=== PATIENT | female | born 1960 | race Caucasian/White ===

== ENCOUNTER 2020-11-29 11:28 | Outpatient (CLI) | payer BC, SELFPAY ==
--- NOTE | ~2020-11-29 | CT_ITS ---
EXAMINATION: CT abdomen pelvis wo con EXAM DATE: 11/29/2020 11:49 INDICATION: Right ureteral stone. Hematuria. TECHNIQUE: Spiral CT of the abdomen and pelvis was performed without contrast. Axial, coronal and sag ittal images were reviewed. The dose-length product (DLP) for this examination was 585.26 mGy-cm. T he exposure was tailored according to patient size (auto mA exposure control), and iterative reconstr uction (ASIR) was used as additional dose reduction technique. There is no prior study for compariso n. FINDINGS: There is a 3 mm right inferior calyceal stone. There is no ureteral stone or hydronephrosis . The uterus is not identified and has likely been surgically resected. The bladder is unremarkable . The liver, spleen, adrenal glands and pancreas are unremarkable. There are cholecystectomy clips. There is no retroperitoneal or pelvic lymphadenopathy. The appendix is not positively visualized. There is no pericecal inflammatory change to suggest appe ndicitis. There is moderate scattered colonic diverticulosis. There is no adjacent inflammatory marrufo ge to suggest diverticulitis. The stomach and small bowel are unremarkable. There is expected amount of colonic stool. No free intraperitoneal gas. Trace pericardial effusion. Heart normal in size. The lung bases are unremarkable. There are no osteoblastic or osteolytic lesions identified. IMPRESSION: 1. Right inferior calyceal 3 mm stone. No ureteral stones or obstructive nephropathy. 2. Colonic diverticulosis. Reviewed, dictated and finalized at location A. HOLDER IMPRESSION: 1. Right inferior calyceal 3 mm stone. No ureteral stones or obstructive nephr opathy. 2. Colonic diverticulosis.
--- NOTE | ~2020-11-29 | XR_ITS ---
EXAMINATION: XR abdomen/kub 1V EXAM DATE: 11/29/2020 11:53 INDICATION: Right inferior calyceal stone. TECHNIQUE: Frontal projection(s) of the abdomen for interpretation. Correlation is made to CT abdomen same date. FINDINGS: Bowel gas overlying the renal contours, cannot confidently identify the 3 mm right inferio r calyceal stone. Nonobstructive bowel gas pattern. There are cholecystectomy clips. IMPRESSION: Right inferior calyceal stone not confidently visualized. Reviewed, dictated and finalized at location A. STHESIOLOGIST
== END 2020-11-29 11:29 | disposition home or self-care (01) ==
PROVIDERS: PCP Internal Medicine; Visit Provider Urology
DX: N20.1 Calculus of ureter (principal); K57.30 Diverticulosis of large intestine without perforation or abscess without bleeding
CPT/HCPCS: 74018; 74176

== ENCOUNTER 2021-01-10 10:17 | Outpatient (CLI) | payer BC, SELFPAY ==
--- NOTE | ~2021-01-10 | CT_ITS ---
EXAMINATION: CT abdomen pelvis wo con DATE: 01/10/2021 10:41 INDICATION: Hematuria, history of ureteral stone TECHNIQUE: Computed tomography (CT) of the abdomen and pelvis was performed without intravenous contr ast. The dose-length product (DLP) was 504.25 mGy-cm. Automated exposure control and iterative recons truction technique were employed. COMPARISON: 11/29/2020 FINDINGS: Minimal dependent atelectasis is present in the lung bases. The heart size is normal. There is a small pericardial effusion. A small sliding hiatal hernia is noted. A 1.4 cm hypoattenuating le dale of the left hepatic lobe likely reflects a cyst or hemangioma in the absence of known malignancy . The gallbladder is surgically absent. The spleen, pancreas, and adrenal glands are normal. The prev iously described 3 mm right kidney stone is now seen in the right distal ureter (image 128). The left kidney is unremarkable. No pathologically enlarged abdominal or pelvic lymph nodes are identified. T here is no free intraperitoneal gas or evidence of bowel obstruction. Colonic diverticulosis is prese nt without evidence of diverticulitis. A fat-containing umbilical hernia is noted. IMPRESSION: 1. Migration of the previously described right kidney stone into the distal right ureter. Reviewed, dictated and finalized at location B. IMPRESSION: 1. Migration of the previously described right kidney stone into the distal rig ht ureter.
--- NOTE | ~2021-01-10 | XR_ITS ---
EXAMINATION: XR abdomen/kub 1V INDICATION: Right ureteral stone TECHNIQUE: Supine views of the abdomen were obtained on 2 radiographs. COMPARISON: 11/29/2020 FINDINGS: There is a 4 mm stone projecting over the right sacrum which appears to project between S1 and S2. A phlebolith is noted in the right pelvis. There are cholecystectomy clips in the right upper quadrant. The bowel gas pattern is normal. The lung bases are clear. IMPRESSION: 1. 4 mm right distal ureteral stone. Reviewed, dictated and finalized at location B.
== END 2021-01-10 10:18 | disposition home or self-care (01) ==
PROVIDERS: PCP Internal Medicine; Visit Provider Urology
DX: N20.1 Calculus of ureter (principal)
CPT/HCPCS: 74018; 74176

== ENCOUNTER 2021-01-24 08:46 | Outpatient (CLI) | payer BC, SELFPAY ==
--- NOTE | ~2021-01-24 | XR_ITS ---
EXAMINATION: XR abdomen/kub 1V EXAM DATE: 01/24/2021 08:58 INDICATION: Right ureteral stone. TECHNIQUE: Frontal projection of the upper abdomen, frontal projection lower abdomen/pelvis for inter pretation. Comparison is made to prior examination from 01/10/2021. FINDINGS: There is a right-sided pelvic round calcification unchanged, a phlebolith. Previous exam arroyo d indicated small density over the right sacral ala. Stool overlies the ureterovesicular junctions. N o other calcifications identified. There are cholecystectomy clips. There are mild bony degenerative changes. IMPRESSION: Possible reidentification of right mid ureteral stone. Reviewed, dictated and finalized at location A.
== END 2021-01-24 08:47 | disposition home or self-care (01) ==
PROVIDERS: PCP Internal Medicine; Visit Provider Urology
DX: N20.1 Calculus of ureter (principal)
CPT/HCPCS: 74018

== ENCOUNTER 2021-03-11 12:57 | Outpatient (CLI) | payer BC, SELFPAY ==
--- NOTE | ~2021-03-11 | XR_ITS ---
XR abdomen/kub 1V DATE: 03/11/2021 13:13 INDICATION: Right ureteral stone follow-up TECHNIQUE: AP projection, 2 views COMPARISON: 01/24/2021 KUB 01/10/2021 KUB 01/10/[address] abdomen pelvis FINDINGS: No calcified right ureteral calculus is evident. No other urinary tract calcification is de tected. Noncontrast CT abdomen pelvis is more sensitive for detection of urinary tract calculi. Status post cholecystectomy. No visceromegaly is evident. The psoas shadows are intact. There is no evidence of bowel obstruction. IMPRESSION: Apparent interval resolution of right ureteral calculus since 01/10/2021 Reviewed, dictated and finalized at Location A. Reviewed, dictated and finalized at location A. IMPRESSION: Apparent interval resolution of right ureteral calculus since 2020
== END 2021-03-11 12:58 | disposition home or self-care (01) ==
LOC: ANHIMG 13:02
PROVIDERS: PCP Internal Medicine; Visit Provider Urology
DX: N20.1 Calculus of ureter (principal)
CPT/HCPCS: 74018

== ENCOUNTER 2025-05-31 14:17 | Outpatient (CLI) | payer BC, SELFPAY ==
--- OUTSIDE RECORDS SUMMARY | 2025-05-31 14:30 | XMS_ITS | Clinical Summary ---
Author Organization [facility] Address [address] [place] [id number] Care Team Providers Care Battery Loader Name Role Phone Unavailable Primary Care Provider Unavailabl e Social History Tobacco Use Types Packs/Day Years Used Date Smoking Tobacco: Never Assessed Comments Unknown Sex and Gender Information Value Date Recorded Sex Assigned at Not on file Legal Sex Female 9:32 PM CDT Gender Identity Not on file Sexual Orientation Not on file Plan of Treatment Health Maintenance Due Date Last Done Comments CT Colonography 1960 Colonoscopy 1960 Colorectal Cancer Screening 1960 FIT-DNA 1960 FIT 1960 FOBT 1960 Mammogram 1960 Pap Smear 1960 Sigmoidoscopy 1960 MMR Vaccines (1 of 1 - Stand jason series) 1961 Depression Screening 1972 Varicella Vaccines (1 of 2 - 13+ 2-dose series) 1973 DTaP,Tdap,and Td Vaccines (1 - Tdap) 1981 AMB Pneumococcal 50+ yrs (1 of 1 - PCV) 2010 Zoster Series Vaccines (1 of 2) 2010 COVID-19 Vaccine (1 - 2023-2 5 season) 2025 Influenza Vaccine (#1) 2025 RSV Vaccines and 60 Years or Older (1 - 1-dose 75+ series) 2035 HIB Vaccines Aged Out No longer eligi ble based on patient's age to complete this topic HPV Vaccines Aged Out No longer eligi ble based on patient's age to complete this topic Hepatitis A Vaccines Aged Out No long er eligible based on patient's age to complete this topic Hepatitis B Vaccines Aged Out No long er eligible based on patient's age to complete this topic IPV Vaccines Aged Out No longer eligi ble based on patient's age to complete this topic Meningococcal ACWY Vaccine Aged Out N o longer eligible based on patient's age to complete this topic Meningococcal B Vaccine Aged Out No l onger eligible based on patient's age to complete this topic RSV Vaccines <20 Months Aged Out No l onger eligible based on patient's age to complete this topic Insurance [employer]
--- OUTSIDE RECORDS SUMMARY | 2025-05-31 14:30 | XMS_ITS | Clinical Summary ---
Author Organization [facility] Healthcare Address [address] [place] [address] Care Team Providers Care Data Entry Associate Name Role Phone Rehan Lyon DO Primary Care Provider [phone] Allergies No known active allergies Medications No known medications Active Problems Problem Noted Date Diagnosed Date Encounter for gynecological examination without abnormal finding 04/13/2018 History of thyroid disease 07/10/2013 Overview (12/30/2016): Hx of Tabitha thyroiditis Fatigue 05/16/2013 Resolved Problems Problem Noted Date Diagnosed Date Resolved Date Endometrial hyperplasia, unspecified 05/26/2013 06/21/2020 Encounters Date Type Department Care Team Description 05/04/2025 2:13 PM CDT - 05/04/2025 11:59 PM CDT Hospital Encounter [facility] - Breast [facility] [address] [address] Abnormality of right breast on screening mammography Discharge Disposition: Discharge to home or self care 05/03/2025 Orders Only [facility] [address] [facility] [address] [place] [phone] Kg Wolfe MD Primary hyperparathyroidism (Primary Dx) 04/30/[address] [phone] Rehna Lyon DO 04/24/2025 12:34 PM CDT - 04/24/2025 11:59 PM CDT Hospital Encounter [facility] [address] [place] [address] Screening mammogram, encounter for Discharge Disposition: Discharge to home or self care from Last 3 Months Surgical History Surgery Date Site/Laterality Comments MYOMECTOMY 09/27/2012 - 09/26/2013 Myomectomy CHOLECYSTECTOMY 09/27/1980 - 09/26/1981 Cholecystectomy ID TOTAL ABDOMINAL HYSTERECT W/WO RMVL TUBE OVARY Hysterectomy - (Added by TW Conv) HYSTERECTOMY 09/27/2012 - 09/26/2013 Medical History Medical History Date Comments Personal history of other en docrine, nutritional and metabolic disease History of thyroid d isease - (Added by TW Conv) Postmenopausal bleeding Postmeno pausal bleeding - (Added by TW Conv) Pelvic and perineal pain Pelvic pain - (Added by TW Conv) Personal history of urinary infection History of urinary tract infection - (Added by TW Conv) Family History Medical History Relation Name Comments No Known Problems Father No Known Problems Mother Rheum arthritis Sister Rheumatoid a rthritis; Relation Name Status Comments Father Mother Sister Social History Tobacco Use Types Packs/Day Years Used Date Smoking Tobacco: Never Smokeless Tobacco: Never Alcohol Use Standard Drinks/Week Comments No 0 (1 standard drink = 0.6 oz pur e alcohol) Humiliation, Afraid, Rape, and Kick questionnair e Answer Date Recorded Within the last year, have y ou been afraid of your partner or ex-partner? No 06/21/2020 Within the last year, have y ou been humiliated or emotionally abused in other ways by your partner or ex-partner? No Within the last year, have y ou been kicked, hit, slapped, or otherwise physically hurt by your partner or ex-partner? No 06/21/2020 Within the last year, have y ou been raped or forced to have any kind of sexual activity by your partner or ex-partner? No 06/21/2020 Social Connection and Isolation Panel Answer Date Recorded Frequency of Communication with Friends and Fami ly Not on file 06/21/2020 Frequency of Social Gatherings with Friends and Family Not on file 06/21/2020 Attends Church Services Not on file 06/21 Active Member of Clubs or Organizations Not on f ile 06/21/2020 Attends Club or Organization Meetings Not on kathi e 06/21/2020 Are you , , di vorced, , never , or living with a partner? 06/21/2020 AUDIT-C Answer Date Recorded Q1: How often do you have a drink containing alc ohol? Monthly or less 07/07/2021 Q2: How many drinks containi ng alcohol do you have on a typical day when you are drinking? 1 or 2 07/07/2021 Frequency of Binge Drinking Not on file 06/27 Exercise Vital Sign Answer Date Recorde d Days of Exercise per Week 3 days 2019 Minutes of Exercise per Session 60 min 06/21/2020 Comments No Sex and Gender Information Value Date Recorded Sex Assigned at Not on file Legal Sex Female 3:02 AM MISSIONARY COORDINATOR Gender Identity Not on file Sexual Orientation Not on file Obstetrics History Para Term AB IAB SAB Ectopic Multiple Livin g Live Births 3 2 1 1 1 1 2 4 4 Date Outcome GA Total Labor Labor/2nd/3rd Weight Sex Type Anes PTL Nazia A1 A5 Name Clin 1986 SAB D&C 1988 M Vag-S pont Y Living Complications:Twin Para M Vag-S pont Living 1989 Term F Vag-S pont N Living Complications:Twin Term F Vag-S pont Living Last Filed Vital Signs Vital Sign Reading Time Taken Comments Blood Pressure 141/81 07/07/2021 1:04 PM CDT Pulse 67 12/27/2013 7:36 AM CDT Temperature - - Respiratory Rate - - Oxygen Saturation 100% 12/27/2013 7:36 AM CDT Inhaled Oxygen Concentration - - Weight 82.6 kg (182 lb) 05/04/2025 2:21 PM CDT Height 167.6 cm (5' 6) 05/04/2025 2:21 PM CDT Body Mass Index 29.38 05/04/2025 2:21 PM CDT Plan of Treatment Health Maintenance Due Date Last Done Comments Colon Cancer Screening-Colonoscopy 1960 Depression Screening 1960 Hepatitis C Screening 1960 DTaP/Tdap/Td Vaccine (1 - Tdap) 1971 Hepatitis B Screening 1978 Zoster Vaccine (1 of 2) 2010 Regular Well Visit/Exam 18-64 07/07/2022 07/07/2021, 06/21/2020, 04/28/2019, Additional history exists Covid-19 Vaccine ( season) 2024 12/03/2020, 10/24/2020 Influenza Vaccine (#1) 2025 Breast Cancer Screening-Mammogram 04/24/2026 04/24/2025, 04/07/2024, 02/18/2023, Additional history exists Pneumococcal vaccine <65 Aged Out No longer eligible based on patient's age to complete this topic Procedures Procedure Name Priority Date/Time Associated Diagnosis Comments DIAGNOSTIC MAMMOGRAM RIGHT W RADHAMES Routine 05/04/2025 2:53 PM CDT Abnormality of right breast on screening mammography SCREENING MAMMOGRAM BILATERAL W RADHAMES Schedule Routine, Read Routine (OP Routine) 04/24/2025 12:48 PM CDT Screening mammogram, encounter for from Last 3 Months Results * Diagnostic Mammogram Right W Radhames (05/04/2025 2:53 PM CDT) Anatomical Region Laterality Modality Breast Right Mammography 05/04/2025 2:54 PM CDT Impressions 05/04/2025 3:43 PM CDT No evidence of malignancy in the RIGHT breast. The queried RIGHT breast asymmetry represents superimposed normal fibroglandular tissue. OVERALL FINAL ASSESSMENT: BI-RADS Category 2: Benign. RECOMMENDATION: Annual screening mammography is recommended. The above findings and recommendations were communicated to the patient verbally. Dictated by: Ernie Yang M.D. The radiology attending physician has personally reviewed this study, and had reviewed and/or edited this written report and agrees with it. Electronically signed by: Chery Horn MD Narrative 05/04/2025 3:43 PM CDT EXAMINATION: RIGHT UNILATERAL DIGITAL DIAGNOSTIC MAMMOGRAM AND DIGITAL BREAST TOMOSYNTHESIS HISTORY: 64-year-old woman called back from screening for a nodular asymmetry in the central RIGHT breast at mid depth seen on craniocaudal view. No family history of breast well-appearing cancer. COMPARISON: Multiple prior mammograms, most recently 04/24/2025 TECHNIQUE: Full field digital mammographic views of the RIGHT breast were performed, including computer aided detection (CAD) and digital breast tomosynthesis (DBT). BREAST PARENCHYMAL COMPOSITION: There are scattered areas of fibroglandular density. RIGHT MAMMOGRAM FINDINGS: There is no mass, calcification or architectural distortion suggestive of malignancy in the RIGHT breast. The queried central RIGHT breast nodular asymmetry does not persist on additional diagnostic views today, compatible with superimposed normal fibroglandular tissue. Vascular calcifications and stable benign-appearing parenchymal calcifications are noted in the right breast. us Rehan Sonali DO IMG MAMMO PROCEDURES Final Resul t * (ABNORMAL) Screening Mammogram Bilateral W Radhames (04/24/2025 12:48 PM CDT) Anatomical Region Laterality Modality Breast Bilateral Mammography Impressions 04/25/2025 1:37 PM CDT Right 1) Mass: Right breast mass in the central region. Assessment: 0 - Incomplete. Diagnostic mammogram with possible ultrasound is recommended. Left No evidence of malignancy. OVERALL BI-RADS FINAL ASSESSMENT: 0 - Incomplete: Needs Additional Imaging Evaluation RECOMMENDATIONS: Recommend right breast diagnostic mammogram with possible ultrasound. Narrative 04/25/2025 1:37 PM CDT EXAMINATION: Screening Mammogram Bilateral W Radhames: 04/24/2025 COMPARISON: Relevant prior studies available at the time of interpretation were reviewed, including the most recent mammogram on: 04/07/2024. TECHNIQUE: Mammography was performed with 2D and digital breast tomosynthesis (DBT) images. CAD was utilized. BREAST PARENCHYMAL COMPOSITION: There are scattered areas of fibroglandular density. FINDINGS: Right 1) Mass: There is a mass seen in the central region of the right breast on the CC view. This finding needs additional imaging evaluation. Left There is no suspicious mass, calcification, or architectural distortion. us Self Screening Mammogram IMG MAMMO PROCEDURES Fi nal Result from Last 3 Months Insurance [facility] [employer] [facility] [facility] [employer] Care Teams Data Entry Associate Relationship Specialty Start Date End Date Rehan Lyon DO [address] [facility] [address] [place], [place] [id number] PCP - General Internal Medicine 04/02/25
--- NOTE | 2025-05-31 14:31 | ECHO_ITS ---
Patient Info Name: Ross Hutson Age: 64 years : 1960 Gender: Female Ht: 66 in Wt: 185 lbs BSA: 2.00 m2 HR: 62 bpm BP: 144 / 97 mmHg Technical Quality: Good Exam Date: 05/31/2025 2:56 PM Patient Status: O Admit Date: 05/31/2025 Exam Type: CA echo doppler color flow Complete two-dimensional, color flow and Doppler transthoracic echocardiogram is performed. Cupola Melter Helper: Nadiya Billings Attending Provider: Rehan Lyon DO Summary 1. Complete two-dimensional, color flow and Doppler transthoracic echocardiogram is performed. 2. Left ventricular chamber dimension is normal. 3. Left ventricular systolic function is normal, estimated at 60-65. 4. The left ventricular diastolic function is grade I diastolic dysfunction. 5. E/e' 9 is minimally elevated. 6. There is mild aortic valve sclerosis. 7. There is mild aortic valve regurgitation. 8. There is mild mitral valve regurgitation. 9. There is trace tricuspid valve regurgitation. Left Ventricle E/e' 9 is minimally elevated. Left ventricular chamber dimension is normal. Left ventricular systolic function is normal, estimated at 60-65. The left ventricular diastolic function is grade I diastolic dysfunction. Right Ventricle Right ventricular chamber dimension is normal. Right ventricular systolic function is normal and with normal TAPSE 1.8 cm. Left Atria Left atrial chamber dimension is normal. Right Atria Right atrial chamber dimension is normal. Aortic Valve The aortic valve is trileaflet. There is mild aortic valve sclerosis. There is no aortic valve stenosis. There is mild aortic valve regurgitation. Pulmonic Valve There is no pulmonic regurgitation. Mitral Valve There is no mitral valve stenosis. There is mild mitral valve regurgitation. Tricuspid Valve There is trace tricuspid valve regurgitation. RVSP is not measured due to an inadequate TR jet. Pericardium/Pleural There is no pericardial effusion. Inferior Vena Cava Normal inferior vena cava with >50% collapse upon inspiration consistent with normal right atrial pressure, 5 mmHg. Aorta The aortic root size at the sinus of Valsalva is normal. Left Ventricular Outflow Tract Name Value Normal LVOT 2D LVOT Diameter 1.9 cm LVOT Doppler LVOT Peak Velocity 116 cm/s LVOT Peak Gradient 5 mmHg LVOT Mean Gradient 3 mmHg LVOT VTI 30 cm LVOT Stroke Volume 82 ml LVOT CO 5.1 l/min LVOT CI 2.5 l/min/m2 Pulmonic Valve Name Value Normal RVOT Doppler RVOT Peak Velocity 65 cm/s RVOT Peak Gradient 2 mmHg PV Doppler PV Peak Velocity 79 cm/s PV Peak Gradient 2 mmHg Mitral Valve Name Value Normal MV Diastolic Function MV E Peak Velocity 76 cm/s MV A Peak Velocity 98 cm/s MV E/A 0.8 MV Decel Time (PW) 238 ms MV Annular TDI MV E/e' (Septal) 11.8 MV E/e' (Lateral) 8.0 MV E/e' (Average) 9.9 Tricuspid Valve Name Value Normal Estimated PAP/RSVP RA Pressure 5 mmHg <=5 Aortic Valve Name Value Normal AV Doppler AV Peak Velocity 143 cm/s AV Peak Gradient 8 mmHg AV Area (Cont Eq Pedro) 2.2 cm2 AV DI (Pedro) 0.81 AV Regurgitation 2D LVOT Area 2.8 cm2 Ventricles Name Value Normal LV Dimensions 2D/MM IVS Diastolic Thickness (2D) 0.9 cm 0.6-1.0 LVID Diastole (2D) 4.3 cm 3.8-5.2 LVIW Diastolic Thickness (2D) 0.9 cm 0.6-0.9 LVID Systole (2D) 3.0 cm 2.2-3.5 LVOT Diameter 1.9 cm LV Mass (2D Cubed) 122.97 g 67.00-162.00 LV Mass Index (2D Cubed) 61 g/m2 43-95 Relative Wall Thickness (2D) 0.39 <=0.42 LV Fractional Shortening/Ejection Fraction 2D/MM LV Fractional Shortening (2D) 32 % 27-45 LV EF (2D Teichholz) 60 % LV Diastolic Volume (4C MOD) 96 ml LV EF (4C MOD) 59 % LV Diastolic Volume (2C MOD) 94 ml LV EF (2C MOD) 62 % LV Diastolic Volume (BP MOD) 97 ml 46-106 LV Diastolic Volume Index (BP MOD) 49 ml/m2 29-61 LV Systolic Volume (BP MOD) 38 ml 14-42 LV Systolic Volume Index (BP MOD) 19 ml/m2 8-24 LV EF (BP MOD) 60 % 54-74 LV Diastolic Length (4C) 7.3 cm LV Systolic Length (4C) 6.5 cm LV Stroke Volume (4C MOD) 56 ml Atria Name Value Normal LA Dimensions LA Volume (4C A-L) 56 ml LA Volume (BP A-L) 45 ml RA Dimensions RA Systolic Major [place] Length (4C) 4.7 cm 2.2-2.8 RA Area (4C) 10.7 cm2 <=18.0 Report Signatures
== END 2025-05-31 14:18 | disposition home or self-care (01) ==
LOC: ANHCARD 14:20
PROVIDERS: PCP Internal Medicine; Visit Provider Internal Medicine
DX: I31.39 Other pericardial effusion (noninflammatory) (principal); I34.0 Nonrheumatic mitral (valve) insufficiency; I35.1 Nonrheumatic aortic (valve) insufficiency
CPT/HCPCS: 93306